=== PATIENT | male | born 1940 | race Caucasian/White ===

== ENCOUNTER 2021-03-07 11:06 | Emergency (ER) | payer OTHER, SELFPAY ==
[2021-03-07 11:13] VITALS: PULSE 80; RESP 18; O2SAT 97; BMI 23.7
[2021-03-07 12:04] VITALS: BP 129/76; PULSE 80; RESP 18; TEMP 36.8; O2SAT 97; BMI 23.8
--- NOTE | 2021-03-07 12:57 | HMH.EDUTC ---
[facility] [place] Disposition Clinical Impression: Laceration Disposition: Home, Self-Care Condition on Discharge: Good Instructions: How to Care for a Laceration After Repair, Laceration Repair Additional Instructions: Suture instructions: You have required stitches today. Please read the following instructions so you know how to care for them: 1. Keep wound area dry for the first 24 hours. 2 May clean gently with mild soap and water, after 48 hours to prevent crusting over suture knots. 3. You may shower if your provider gives permission but do not take a bath until the skin is healed.. 4. Never leave a wet dressing or Band-Aid on your stitches as this allows bacteria to reach the area and may cause infection. Band-aids can cause the wound to sweat and not recommended to wear for long periods of time Watch for signs of infection: Increasing redness, tenderness or warmth around the suture site Unusual swelling around the site Appearance of pus around each suture or any red streaks Fever If you develop any of the above signs or symptoms of infection, Follow up with Family Physician immediately 5. Suture removal in _10-14___days 6. Return to [facility] or follow up with family doctor for removal. This can be done by any medical provider during regular hours on Saturday through Saturday, by appointment. Referrals: Austyn Talavera MD [Primary Care Provider] - As needed Time of Disposition: 12:58 Medical Decision Making - Stanley Inquiry Pt receiving controlled substance: No Stanley was queried for this patient: No Vital Signs: 03/07/21 11:13 03/07/21 12:04 Temperature 98.2 F Temperature Source Oral Pulse Rate [Left Radial] 80 80 Respiratory Rate 18 18 Blood Pressure [Right Arm] 129/76 Blood Pressure Mean [Right Arm] 93 02 Sat by Pulse Oximetry 97 97 Oxygen Delivery Method Room Air Room Air Medical Decision Narrative: Reports last tetanus shot was 2 years ago [facility] [place] HPI - General Stated complaint: WC 03/07/21 10:40, left hand injury Time Seen by Provider: 03/07/21 12:00 Mode of Arrival: Ambulatory Source of Information: Patient Limitations: No Limitations Description of Symptoms (Recalled from Triage Doc. by RN): cut left thumb at work with a knife HEENT Symptoms (Recalled from RN notes): No Resp Symptoms (Recalled from RN notes): No Skin Symptoms (Recalled from RN notes): Yes (lac to thumb) MS Symptoms (Recalled from RN notes): No Functional Status (Recalled from RN notes): n/a - History of Present Illness Provider Complaint: Patient states that he was cutting a box with a knife at work when the knife slipped and cut him on his left thumb and hand States that he immediatly applied pressure and they wanted him to come in and get it checked - Related Data Allergies Allergy/AdvReac Type Severity Reaction Status Date / Time No Known Allergies Allergy Verified 09/30/18 12:04 - Worker's Comp Is this a Worker's Comp case?: No [facility] History - Hepatitis A Screen Drug use history?: No High risk sexual behaviors?: No History of sexually transmitted infection?: No Currently employed?: No Childcare worker?: No Do you have indoor plumbing?: Yes Do you have electricity?: Yes Attestation statement:: This patient has been screened for Hepatitis A risk factors. I have reviewed the patient's past medical history: Yes ROS Obtained: Yes All systems reviewed & no additional complaints, Yes Systems reviewed as appropriate & no additional complaints - Constitutional Constitutional: Reports system reviewed and no additional complaints, except as docu, Denies body ache, Denies chills, Denies fever(s) - ENT Ears, Nose, Mouth, and Throat: Reports system reviewed and no additional complaints, except as docu - Cardiovascular Cardiovascular: Reports system reviewed and no additional complaints, except as docu - Respiratory Respiratory: Reports system reviewed and no additional complaints, except as docu - Gastrointestinal
[2021-03-07 13:20] VITALS: BP 129/76; PULSE 80; RESP 18; TEMP 36.8; O2SAT 97
== END 2021-03-07 13:20 | disposition home or self-care (01) ==
PROVIDERS: Emergency Provider Nurse Practitioner; PCP Emergency Medicine
DX: S61.012A Laceration without foreign body of left thumb without damage to nail, initial encounter (principal); W26.0XXA Contact with knife, initial encounter; Z04.2 Encounter for examination and observation following work accident
CPT/HCPCS: 12002; 99202; G0463

== ENCOUNTER 2021-03-16 08:21 | Emergency (ER) | payer OTHER, SELFPAY ==
[2021-03-16 08:22] VITALS: BP 138/72; PULSE 86; RESP 16; TEMP 36.6; O2SAT 98; BMI 25.4
--- NOTE | 2021-03-16 08:34 | HMH.EDGENADL ---
ED Disposition Clinical Impression: Wound infection Disposition: Home, Self-Care Condition on Discharge: Good Instructions: DI for Wound Infection Additional Instructions: Keep the wound and Steri-Strips dry. Antibiotic as prescribed. Return to the urgent treatment center in 2 days for wound recheck. Return sooner if increasing redness, red streaks, fever, or pus drainage. Antibiotic as prescribed. Prescriptions: clindamycin HCL [Clindamycin HCl] 300 mg PO QID #28 cap Transmission Status: Pending to [facility]/pharmacy #[id number] Referrals: Austyn Talavera MD [Primary Care Provider] - - Critical Care Critical Care Time: No Attestation: On 03/16/21, the high probability of a clinically significant, sudden or life threatening deterioration of the following system(s) required my full and direct attention, intervention and personal management. The time I documented below is in addition to time spent performing reported procedures but includes the following listed in this critical care notation. Medical Decision Making - Stanley Inquiry Pt receiving controlled substance: No Vital Signs: 03/16/21 08:22 03/16/21 08:39 Temperature 97.9 F Temperature Source Oral Pulse Rate 85 Pulse Rate [Right Radial] 86 Respiratory Rate 16 Blood Pressure 127/70 Blood Pressure [Right Arm] 138/72 Blood Pressure Mean [Right Arm] 94 Blood Pressure Source [Right Arm] Automatic Cuff Blood Pressure Position [Right Arm] Sitting 02 Sat by Pulse Oximetry 98 97 Oxygen Delivery Method Room Air Orders (Tests/Meds): ED MEDICATIONS Discontinued Medications Generic Name Dose Route Start Last Admin Trade Name Freq PRN Reason Stop Dose Admin Clindamycin HCl 300 mg 03/16/21 08:49 Clindamycin 150mg Capsule PO 03/16/21 08:50 ONCE ONE Tetanus/Diphtheria Toxoids 0.5 ml 03/16/21 08:47 Tetanus-Diphth Toxoid, Adult 0.5ml Syr IM 03/16/21 08:48 .ONCE ONE General Adult HPI - General Stated complaint: W/C 03/07 sutures red Time Seen by Provider: 03/16/21 08:34 - History of Present Illness HPI narrative: 9 days ago the patient cut himself with a utility knife on his hand. He came to the urgent treatment center and had sutures placed. Nurse at work is concerned because of redness around the wound. He denies pain, pus drainage, fever. He initially declined a tetanus immunization when he was seen here for sutures, thinking he might have been up-to-date, but says that he cannot find documentation of a tetanus immunization and says he would like to get a tetanus immunization at this time. - Related Data Previous Rx's Medication Instructions Recorded clindamycin HCL [Clindamycin HCl] 300 mg PO QID #28 cap 03/16/21 Allergies Allergy/AdvReac Type Severity Reaction Status Date / Time No Known Allergies Allergy Verified 09/30/18 12:04 [facility] History - Hepatitis A Screen Attestation statement:: This patient has been screened for Hepatitis A risk factors. I have reviewed the patient's past medical history: Yes ROS Obtained: Yes Systems reviewed as appropriate & no additional complaints - Constitutional Constitutional: Denies fever(s) - Integumentary/Breasts Skin/Breast: Reports as per HPI Physical Exam - General General appearance: alert, in no apparent distress - Respiratory Respiratory exam: Absent: respiratory distress - Cardiovascular Cardiovascular exam: Present: regular rate - Expanded Upper Extremity Exam Left Comment: Sutured wound left hand in the region of the first metacarpal dorsal surface. Sutures are intact. Erythema around the wound that extends 1 cm from the wound edges. Minimal tenderness to palpation. No pus expressed. No fluctuance. No lymphangitis. Full range of motion with normal strength. Neurovascular intact. - Neurological Exam Neurological exam: Present: alert, oriented X3. Absent: motor sensory deficit
[2021-03-16 08:39] VITALS: BP 127/70; PULSE 85; O2SAT 97
[2021-03-16 09:18] VITALS: BP 127/70; PULSE 86; RESP 17; TEMP 36.8
== END 2021-03-16 09:18 | disposition home or self-care (01) ==
PROVIDERS: Emergency Provider Emergency Medicine; PCP Emergency Medicine
DX: S61.012D Laceration without foreign body of left thumb without damage to nail, subsequent encounter (principal); Z23 Encounter for immunization
CPT/HCPCS: 90471; 90714; 99281